=== PATIENT | female | born 1950 | race Hispanic/Latino ===

== ENCOUNTER 2018-07-13 09:03 | Inpatient (IN) | payer MEDICARE, BC ==
[~2018-07-13] VITALS: Ht 162.6 cm; Wt 94.4 kg
--- NOTE | 2018-07-13 09:09 | NUR ---
MD NOTIFIED OF PT ON ARRIVAL. STAT HEAD CT PER MD STROKE PROTOCOL.
--- NOTE | 2018-07-13 09:10 | NUR ---
DR. RODRIGUEZ AT BEDSIDE FOR PT EVAL.
--- OUTSIDE RECORDS SUMMARY | 2018-07-13 09:13 | XMS REPORT ---
Author Author [facility] Address Unknown Phone Unavailable Care Team Providers Care General Labor Name Role Phone Unavailable Unavailable Payers Payer Name Policy Type Policy Number Effective Date Expiration Date Problems This patient has no known problems. Allergies, Adverse Reactions, Alerts Allergy Name Allergy Type Status Severity Reaction(s) Onset Date Inactive Date Treating Clinician Comments tiara VALDEZ Active U 2013-09-12 00:00:00 Medications This patient has no known medications.
--- NOTE | 2018-07-13 09:35 | Diagnostic Imaging Report ---
Exam: Head CT without contrast History: Right-sided numbness Comparison studies: None Technique: Axial images were obtained from the skull base to the vertex. Coronal and sagittal images reconstructed from the axial data. Dose modulation, iterative reconstruction, and/or weight based adjustment of the mA/kV was utilized to reduce the radiation dose to as low as reasonably achievable. Radiation dose: Total DLP: 921 mGy*cm. Estimated effective dose: DLP x 0.015 Intravenous contrast: None Findings: Scalp: No abnormalities. Bones: No fractures, blastic or lytic lesions. Brain sulci: Appropriate for age. Ventricles: Normal in size and configuration. No hydrocephalus. Extra-axial spaces: No masses, no fluid collection. Parenchyma: No mass, acute hemorrhage or acute or chronic cortical insults. Subtle right anterior subinsular hypodensity adjacent to the anterior margin of the right lentiform nucleus may be a small chronic lacunar infarct. Sellar/suprasellar region: No abnormalities. Craniocervical junction: Patent foramen magnum. No Chiari one malformation. Incidental findings: Atherosclerotic calcifications in the carotid siphons. IMPRESSION: 1. No acute intracranial abnormalities. 2. Small right anterior subinsular lacunar infarct. Signed by: Dr. Cain Muñiz M.D. on 07/13/2018 9:32 AM
--- NOTE | 2018-07-13 09:35 | NUR ---
RADIOLOGY AT BEDSIDE FOR IMAGING AT THIS TIME.
[2018-07-13 10:17] LABS: BASOPHILS # (AUTO) 0.1 (0.0-0.1); BASOPHILS % 0.6 % (0.0-1.0); EOSINOPHILS # (AUTO) 0.4 (0.0-0.4); HEMATOCRIT 43.2 % (34.2-44.1); HEMOGLOBIN 13.1 g/dL (12.0-16.0); LYMPHOCYTES # (AUTO) 1.9 (1.0-3.2); LYMPHOCYTES % 19.4 % (18.0-39.1); MEAN CORPUSCULAR HEMOGLOBIN 23.9 pg (28-32); MEAN CORPUSCULAR HGB CONC 30.3 g/dL (31-35); MEAN CORPUSCULAR VOLUME 78.7 fL (81-99); MONOCYTES # (AUTO) 0.7 (0.2-0.8); MONOCYTES % 6.9 % (4.4-11.3); NEUTROPHILS # (AUTO) 6.8 (2.1-6.9); NEUTROPHILS % 68.4 % (38.7-80.0); PLATELET COUNT 322 x10e3/uL (140-360); RED BLOOD COUNT 5.49 x10e6/uL (3.6-5.1); RED CELL DISTRIBUTION WIDTH 18.3 % (11.7-14.4)
--- NOTE | 2018-07-13 10:18 | Diagnostic Imaging Report ---
EXAMINATION: CHEST SINGLE (PORTABLE) INDICATION: Right sided weakness, numbness. COMPARISON: None FINDINGS: TUBES and LINES: None. LUNGS: Lungs are well inflated. There is no evidence of pneumonia or pulmonary edema. PLEURA: No pleural effusion or pneumothorax. HEART AND MEDIASTINUM: The cardiomediastinal silhouette is unremarkable. BONES AND SOFT TISSUES: No acute osseous abnormality. Partially seen fixation hardware in the right proximal humerus. UPPER ABDOMEN: No free air under the diaphragm. IMPRESSION: No acute radiographic abnormality. Signed by: Dr. Sameer Abraham MD on 07/13/2018 10:15 AM
[2018-07-13 10:19] LABS: ALANINE AMINOTRANSFERASE 17 IU/L (0-55); ALBUMIN 3.3 g/dL (3.5-5.0); ALBUMIN/GLOBULIN RATIO 0.8 (0.8-2.0); ALKALINE PHOSPHATASE 96 IU/L (40-150); ANION GAP 14.8 mmol/L (8-16); BLOOD UREA NITROGEN 17 mg/dL (7-26); BUN/CREATININE RATIO 19 (6-25); CALCIUM 9.6 mg/dL (8.4-10.2); CARBON DIOXIDE 20 mmol/L (22-29); CHLORIDE 108 mmol/L (98-107); CREATINE KINASE 114 IU/L (29-168); CREATININE, SERUM 0.88 mg/dL (0.57-1.11); EST GLOMERULAR FILTRATION RATE > 60 ML/MIN (60-); GLUCOSE 131 mg/dL (74-118); MAGNESIUM 1.9 MG/DL (1.3-2.1); POTASSIUM 3.8 mmol/L (3.5-5.1); SODIUM 139 mmol/L (136-145)
[2018-07-13 10:22] LABS: INR 0.81; PROTHROMBIN TIME 11.7 seconds (11.9-14.5)
[2018-07-13 10:23] LABS: PARTIAL THROMBOPLASTIN TIME 27.5 seconds (23.8-35.5)
--- NOTE | 2018-07-13 10:27 | Diagnostic Imaging Report ---
Exam: Right wrist radiographs-3 views History: Status post fall with right wrist pain. Comparison: None. Findings: There is a mildly displaced and impacted, comminuted, intra-articular, distal radial fracture with dorsal angulation. There is borderline mild widening of the scapholunate distance, measuring 3.8 mm. Carpal alignment is otherwise unremarkable. The distal ulna is unremarkable in appearance. Impression: Mildly displaced, comminuted, intra-articular fracture of the distal radius with dorsal angulation. Scapholunate distance measures at the upper limit of normal on one of the views. Ligamentous injury is possible. Signed by: Dr. Sameer Abraham MD on 07/13/2018 10:24 AM
[2018-07-13 10:39] LABS: THYROID STIMULATING HORMONE 1.552 uIU/mL (0.350-4.940)
[2018-07-13 11:01] LABS: CLARITY,URINE CLEAR (CLEAR); COLOR,URINE YELLOW (YELLOW)
[2018-07-13 11:02] LABS: BILIRUBIN,URINE NEGATIVE (NEGATIVE); KETONES,URINE NEGATIVE (NEGATIVE); LEUKOCYTE ESTERASE ,URINE NEGATIVE (NEGATIVE); NITRITE,URINE NEGATIVE (NEGATIVE); PROTEIN,URINE DIPSTICK 1+ (NEGATIVE); URINE UROBILINOGEN 0.2 mg/dL (0.2 - 1)
[2018-07-13 11:03] LABS: BACTERIA,URINE FEW /HPF; EPITHELIAL CELLS,URINE MODERATE /LPF; RBC,URINE 0-5 /HPF (0-5); WBC,URINE (MAN) 0-5 /HPF (0-5)
[2018-07-13] MEDS ORDERED: ASPIRIN 81 MG CHEW TAB PO ONE (11:45)
[2018-07-13] MEDS ORDERED: ONDANSETRON HCL INJ 2MG/ML 2ML 2 MG/ML VIAL IV PRN (13:00)
[2018-07-13] MEDS ORDERED: ACETAMINOPHEN 325 MG TAB PO ONE (13:00)
[2018-07-13] MEDS ORDERED: ACETAMINOPHEN 325 MG TAB PO PRN (13:00)
[2018-07-13] MEDS ORDERED: DEXTROSE 50% SYRINGE 50 ML IV PRN (13:00)
--- NOTE | 2018-07-13 13:36 | NUR ---
Received patient via stretcher. Accompanied by daughter. AAOx4 to time, person,place, situation. Respirations even and unlabored. Tele #[id number] SR [id number]. Sling and splint to right arm. C/o pain to right wrist rates 4/10. Patient states "I don't need pain medication. Pain is tolerable." Oriented patient to room. Instructed to use call light for assistance. Voiced understanding.
[2018-07-13] MEDS ORDERED: BYSTOLIC10 MG PO (13:58)
[2018-07-13] MEDS ORDERED: LEVEMIR100 UNIT/1 SC (13:58)
[2018-07-13] MEDS ORDERED: JANUMET 50-1,01 EACH PO (13:58)
[2018-07-13] MEDS ORDERED: AMLODIPINE BESYL5 MG PO (13:58)
[2018-07-13] MEDS ORDERED: jardiance PEG (13:58)
[2018-07-13] MEDS ORDERED: RAMIPRIL5 MG PO (13:58)
[2018-07-13] MEDS ORDERED: PRAVASTATIN SOD20 MG PO (13:58)
[2018-07-13 14:00] VITALS: BP_SYST 183; BP_SYST 195; BP_DIAS 81; BP_DIAS 86
[2018-07-13 14:08] VITALS: BP 195/86
--- NOTE | 2018-07-13 14:15 | NUR ---
Notified of consult. Aware of of BP 195/86. No new orders
[2018-07-13] MEDS ORDERED: METFORMIN HCL 500 MG TAB PO SCH (17:00)
[2018-07-13] MEDS ORDERED: SITAGLIPTIN PHOS PO SCH (17:00)
[2018-07-13] MEDS ORDERED: METFORMIN HCL PO SCH (17:00)
[2018-07-13] MEDS ORDERED: [UNRECOGNIZED DRUG - OTHER] PO SCH (17:00)
[2018-07-13] MEDS ORDERED: SITAGLIPTIN 100 MG TAB PO SCH (17:00)
[2018-07-13] MEDS: ENOXAPARIN SOD INJ 40 MG/0.4 ML SYR SC SCH (17:31)
[2018-07-13] MEDS: METFORMIN HCL 500 MG TAB PO SCH (17:31)
[2018-07-13] MEDS: SITAGLIPTIN 100 MG TAB PO SCH (17:31)
[2018-07-13] MEDS: FAMOTIDINE 20 MG TAB PO SCH (17:31)
[2018-07-13] MEDS: INSULIN LISPRO 100 UNIT/1 ML 3ML VIAL SQ SCH ×3 (17:32→20:30)
--- NOTE | 2018-07-13 18:32 | Consultation ---
DATE OF CONSULTATION: 07/13/2018 Neurology Consult Note HISTORY OF PRESENT ILLNESS: Ms. Deleon is a 68-year-old right-hand dominant woman with multiple vascular risk factors admitted to [facility] on July 13, 2018, with a transient ischemic attack. On the morning of admission, the patient was pulling weeds in her garden when she experienced a sudden onset of tingling beginning in the right hand, then moving proximally to the right shoulder and right side of the face, then spreading over the right hemibody. Ms. Deleon endorses numbness and weakness in the same distribution. The patient does not report a visual field cut or other disturbance, dysarthria, dizziness, or confusion associated with above symptoms. Ms. Deleon reports possible expressive aphasia as well as gait impairment associated with the above symptoms. The symptoms described above persisted for approximately 5 to 10 minutes, then spontaneously resolved. While these symptoms were present, the patient's notified emergency medical services. Ms. Deleon was transported to the emergency center at [facility] via ambulance for further evaluation. Upon arrival in the emergency center, the patient was afebrile with a blood pressure of 138/108 mmHg and a pulse of 67 beats per minute. Her neurological examination was documented as being nonfocal. A CT of the brain without contrast was performed. This study did not reveal evidence of recent large territorial ischemia or hemorrhage. Ms. Deleon is admitted to [facility] as an inpatient for further evaluation and treatment of her symptoms. REVIEW OF SYSTEMS: Possible expressive aphasia, weakness of the right arm and leg, numbness and tingling of the right arm and leg, impairment of balance and gait. Otherwise, a 12-point review of systems is negative. PAST MEDICAL HISTORY: Hypertension, hyperlipidemia, diabetes mellitus type 2, and reported mild chronic kidney disease. PAST SURGICAL HISTORY: Total hysterectomy, cholecystectomy, appendectomy, repair of a right shoulder fracture. PAST HOSPITALIZATIONS: Surgeries/procedures as listed, childbirth x2. FAMILY MEDICAL HISTORY: The patient's paternal and maternal grandparents are . Their medical histories are unknown. The patient's father is from end- stage renal disease. He had liver cancer as well. The patient's mother is . Her medical history was significant for diabetes mellitus. Ms. Deleon has three siblings, two brothers and one sister, all of whom are living. One brother and the patient's sister have diabetes mellitus. The second brother is healthy. Ms. Deleon has two children, a son and a daughter, both of whom are alive and healthy. SOCIAL HISTORY: Ms. Deleon is . She is retired. The patient does not report current or prior tobacco or recreational drug use. The patient endorses rare alcohol consumption. HOME MEDICATIONS: Reviewed. Please see the list of home medications available in the electronic medical record. HOSPITAL MEDICATIONS: Reviewed. Please see the list of hospital medications available in the electronic medical record. ALLERGIES: NO KNOWN DRUG ALLERGIES. NO KNOWN FOOD ALLERGIES. NO KNOWN ALLERGIES TO LATEX. NO KNOWN ALLERGIES TO IODINE OR OTHER CONTRAST MATERIALS. PHYSICAL EXAMINATION: VITAL SIGNS: Height 64 inches, weight 210 pounds, BMI 36.0 kg/m2, blood pressure 142/63 mmHg, pulse 67 beats per minute, respiratory rate 17 breaths per minute, and oxygen saturation 95% on room air. GENERAL: The patient is awake and alert, does not appear distressed. Obese. HEENT: Normocephalic, atraumatic. Pupils are equal, round, and reactive to light. Moist mucous membranes. NECK: Supple. No appreciable thyromegaly. No appreciable carotid bruits. CARDIOVASCULAR: S1, S2, regular rate and rhythm. No murmurs, rubs, or gallops. RESPIRATORY: Clear to auscultation bilaterally. No wheezes, rhonchi, or rales. EXTREMITIES: The skin is warm and dry. No clubbing, cyanosis, or edema. The posterior tibial and dorsalis pedis pulses are 2+ and symmetric. The right arm is wrapped in a splint and sling. SKIN: No rashes or lesions. NEUROLOGIC: The right arm is immobilized in a splint and sling. This extremity is not examined during the neurological examination. MEMORY/ATTENTION: The patient is awake and alert, oriented to person, place, time, and situation. CRANIAL NERVES: Cranial nerve I-not tested. Cranial nerve II, III, IV, and - pupils are equal and round, react briskly to light (from 4 mm to 2 mm). Extraocular movements intact. No nystagmus. Cranial nerve V-sensation to light touch and pinprick is intact in the bilateral V1 through V3 distributions. Strength in the temporalis and masseter muscles within normal limits. Cranial nerve VII-the face is symmetric as are all facial movements. Strength is within normal limits. Cranial nerve VIII-hearing is intact to finger rub bilaterally. Cranial nerve IX, X-soft palate elevates equally and symmetrically. Cranial nerve XI-normal strength of the bilateral sternocleidomastoid and trapezius muscles. Cranial nerve XII-the tongue protrudes in midline and moves symmetrically from moby-[id number]-[id number]. STRENGTH: Bulk is normal. Strength is 5/5 in the bilateral deltoids, biceps, triceps, wrist flexors and extensors, finger flexors and extensors, intrinsic hand muscles, hip flexors, knee flexors and extensors, ankle dorsiflexion and plantar flexion, and intrinsic foot muscles excluding the right arm. Tone is normal. DTRs: Deep tendon reflexes are 2+ and symmetric at the triceps, biceps, brachioradialis, patellas, and Achilles, excluding the right arm. Plantar responses are flexor bilaterally. SENSATION: Sensation is intact to light touch and pinprick in both arms and both legs. CEREBELLAR: Lbqbtp-xvuf-lqnaoy and heel-arango movements are intact without dysmetria or other impairment excluding the right arm. GAIT: Deferred. SPEECH: Spontaneous speech is normal without appreciable dysarthria or aphasia. Repetition is intact. INVOLUNTARY MOVEMENTS: None. PRONATOR DRIFT: None excluding the right arm. LABORATORY DATA: A comprehensive metabolic panel is significant for chloride of 108, carbon dioxide of 20, glucose of 131, albumin of 3.3, and globulin of 3.9. B-natriuretic peptide is elevated at 121.7. CBC with differential and platelets reveals white blood cell count of 9.97 with a normal differential. Hemoglobin and hematocrit are 13.1 and 43.2, respectively. The platelet count is 322. PT 11.7, INR 0.81, PTT 27.5. Urinalysis is significant for 1+ protein, 3+ glucose, and 1+ blood. Urine culture has been collected and is pending. DIAGNOSTIC STUDIES: Electrocardiogram on 07/13/2018: Normal sinus rhythm at 60 beats per minute. Left axis deviation. Incomplete right bundle-branch block. Voltage criteria for left ventricular hypertrophy. Bilateral carotid artery ultrasound with Doppler on 07/13/2018: There is no atherosclerosis in either carotid artery system. Flow is antegrade in the bilateral vertebral arteries. CT of the brain without contrast on 07/13/2018: On my review, there is no evidence of recent or remote large territorial ischemia, hemorrhage, mass, or mass effect. Cerebral volumes are appropriate for age. There are findings compatible with mild chronic small vessel ischemic disease. Wrist x-ray on 07/13/2018: Mildly displaced comminuted intra-articular fracture of the distal radius with dorsal angulation. Scapholunate distance measures at the upper limit of normal on one of the views. Ligamentous injury is possible. Chest x-ray on 07/13/2018: No acute radiographic abnormality. Echocardiogram on 07/13/2018: Pending. ASSESSMENT AND PLAN: Ms. Deleon is a 68-year-old right-hand dominant woman with multiple vascular risk factors admitted to [facility] with a transient ischemic attack. At present, her neurological examination is nonfocal excluding the right arm. The patient's laboratory data and other diagnostic studies have been reviewed and are documented above. The patient will undergo a complete stroke evaluation as follows: 1. A lipid panel has been ordered and is pending. Hemoglobin A1c will be ordered. 2. An echocardiogram has been ordered and is pending. 3. MRI of the brain without contrast has been ordered and is pending. 4. The patient will be prescribed aspirin 325 mg by mouth daily for stroke prophylaxis. 5. Allow permissive hypertension for 24 to 48 hours following a transient ischemic attack or stroke. The patient's home antihypertensive medications will be held. Ms. Deleon will be treated with hydralazine 10 mg intravenously every 4 hours as needed for systolic blood pressure greater than 200 mmHg or diastolic blood pressure greater than 110 mmHg. 6. The patient's goal total cholesterol is less than 200 with LDL of less than 70. Follow up the results of the lipid panel. In the interim, treatment with the patient's home medication of pravastatin will be continued. 7. The patient's goal hemoglobin A1c is less than 7.0. Follow up the results of the hemoglobin A1c. In the interim, continue treatment with sliding scale insulin per protocol. Tight glycemic control is recommended while the patient is hospitalized. 8. Speech and Physical Therapy consultations will be deferred as the patient has no current deficits. 9. GI prophylaxis with Pepcid 20 mg by mouth with meals twice daily. DVT prophylaxis with Lovenox 40 mg injected subcutaneously daily. 10. Defer treatment of the remaining medical comorbidities to the primary and other services following the patient. Thank you for this consultation. I will continue to follow the patient while she remains in the hospital. TIME SPENT: 50 minutes. Fara Wang MD CP/MIRZA /[id number] MTDYony
--- NOTE | 2018-07-13 18:43 | Diagnostic Imaging Report ---
History: TIA Comparison studies: CT head 07/13/18 Technique: Sagittal T2; axial DWI, FLAIR, MPGR, T1, Coronal FLAIR. Intravenous contrast: None Findings: Scalp: Normal in signal . No masses . Bone marrow: Normal in signal intensity. Extra-axial: No masses, no fluid collections. Brain sulci: Appropriate for age. Ventricles: Normal in size . No hydrocephalus . Parenchyma: Again seen small chronic lacunar infarct at the right anterior subinsular region. No masses, hemorrhage, acute or chronic vascular insults. Suprasellar region: No abnormalities. Craniocervical junction: No abnormalities. Patent foramen magnum. No Chiari one malformation. Vessels: Normal flow-voids in the arteries and sinuses. IMPRESSION: 1. No acute abnormalities. 2. Small chronic lacunar infarct at the right anterior subinsular region Signed by: DR Ananth Oneill M.D. on 07/13/2018 6:39 PM
--- NOTE | 2018-07-13 19:10 | NUR ---
Report given to oncoming nurse of patient's status. No s/s of acute distress noted.
[2018-07-13 19:37] LABS: CREATINE KINASE MB 0.9 ng/mL (0-5.0)
[2018-07-13 20:06] VITALS: BP 216/94
[2018-07-13] MEDS: HYDRALAZINE HCL 20 MG/ML VIAL IV PRN (20:30)
[2018-07-13] MEDS: INSULIN GLARGINE 100 UNITS/ML VIAL SQ SCH (20:30)
[2018-07-13] MEDS: PRAVASTATIN 20 MG TAB PO SCH (20:35)
--- NOTE | 2018-07-13 20:35 | NUR ---
Paged Dr. Mccarty for orders.
[2018-07-13] MEDS ORDERED: MORPHINE SULFATE 2 MG/ML SYR 1ML IV PRN (20:45)
--- NOTE | 2018-07-13 20:45 | NUR ---
Spoke with Dr. Mccarty regarding pain. OK for morphine 2mg q4 prn for pain.
[2018-07-13] MEDS ORDERED: NON-FORMULARY MEDICATION (Insulin Detemir (Levemir) 60 UNITS) SC SCH (21:00)
[2018-07-13] MEDS: MORPHINE SULFATE INJ 4 MG/ML INJ 1ML IV PRN (21:41)
[2018-07-13 22:17] VITALS: BP 216/94
[2018-07-14] VITALS (9 sets, daily range): BP systolic 178–204; BP diastolic 79–89
--- NOTE | 2018-07-14 00:08 | History and Physical ---
CHIEF COMPLAINT: Ms. Deleon is a pleasant 68-year-old woman, diabetic, hypertensive, who presented to the emergency room on the morning of the 13 of July with a complaint of right-sided weakness, falling, and injury to the right wrist. 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 This resolved after about 10 minutes and she went on about her business. They recurred again today and she fell to the ground, injuring her right wrist. PAST MEDICAL HISTORY: Significant for longstanding diabetes and hypertension. PREVIOUS SURGICAL HISTORY: Includes a right shoulder surgery in February of 2018, which she feels she is still recovering from. She has had a remote hysterectomy, appendectomy, and cholecystectomy. HOME MEDICATIONS: Include Levemir 60 units at bedtime, pravastatin 20 mg daily, and Janumet two tablets daily, Jardiance 25 mg, amlodipine 5 mg daily, Bystolic 10 mg daily, and ramipril 5 mg daily. PERSONAL AND SOCIAL HISTORY: She does not smoke or drink. ALLERGIES: SHE IS ALLERGIC TO CODEINE. PHYSICAL EXAMINATION: GENERAL: At this time shows no obese woman, who is 5 feet 4 inches tall, weighing 210 pounds. VITAL SIGNS: Blood pressure earlier today 195/86. HEAD, EYES, EARS, NOSE, AND THROAT: Unremarkable. NECK: Thick. No jugular venous distention. No bruits. THORAX: Heart sounds S1 and S2 are equal. No murmurs. LUNGS: Clear. ABDOMEN: Protuberant. Normal bowel sounds. EXTREMITIES: No cyanosis, clubbing, or edema. The right arm is in a splint. LABORATORY DATA: Initial laboratory studies show glucose 131. White count 9.9. The x-ray of the right wrist shows fracture angulation. CAT scan of the head suggests small right subinsular lacunar infarct. ASSESSMENTS: 1. Transient ischemic attack, now seemingly improved. 2. History of hypertension. 3. History of type 2 adult onset diabetes. 4. Right wrist fracture. PLAN: The patient has been given aspirin and we will monitor carefully. She has already been seen by Dr. Wang and studies are in progress. We will ask for Orthopedic consultation as well. MD ALANA Jade/MIRZA /[id number] cc: oRme Wang MD
[2018-07-14] MEDS: MORPHINE SULFATE INJ 4 MG/ML INJ 1ML IV PRN ×4 (04:48→20:20)
[2018-07-14 05:53] LABS: BASOPHILS # (AUTO) 0.1 (0.0-0.1); BASOPHILS % 0.4 % (0.0-1.0); EOSINOPHILS # (AUTO) 0.1 (0.0-0.4); EOSINOPHILS % 1.2 % (0.0-6.0); HEMATOCRIT 40.5 % (34.2-44.1); HEMOGLOBIN 12.3 g/dL (12.0-16.0); LYMPHOCYTES # (AUTO) 2.2 (1.0-3.2); LYMPHOCYTES % 19.3 % (18.0-39.1); MEAN CORPUSCULAR HGB CONC 30.4 g/dL (31-35); MEAN CORPUSCULAR VOLUME 79.1 fL (81-99); MONOCYTES % 8.6 % (4.4-11.3); NEUTROPHILS # (AUTO) 7.9 (2.1-6.9); NEUTROPHILS % 69.9 % (38.7-80.0); PLATELET COUNT 349 x10e3/uL (140-360); RED BLOOD COUNT 5.12 x10e6/uL (3.6-5.1); RED CELL DISTRIBUTION WIDTH 18.4 % (11.7-14.4)
[2018-07-14 06:03] LABS: ALBUMIN/GLOBULIN RATIO 0.8 (0.8-2.0); CALCIUM 9.6 mg/dL (8.4-10.2); CHOL/HDL RATIO 4.1 (3.0-3.6); CREATININE, SERUM 0.96 mg/dL (0.57-1.11)
[2018-07-14 06:45] LABS: CREATINE KINASE MB 0.6 ng/mL (0-5.0)
[2018-07-14] MEDS: ASPIRIN 81 MG ENTERIC COATED PO SCH (08:40)
[2018-07-14] MEDS: FAMOTIDINE 20 MG TAB PO SCH ×2 (08:40→18:26)
[2018-07-14] MEDS: INSULIN LISPRO 100 UNIT/1 ML 3ML VIAL SQ SCH ×3 (08:40→18:28)
--- NOTE | 2018-07-14 14:14 | NUR ---
CASE MANAGEMENT ASSESSMENT Online Activist to bedside to discuss plan of care with patient/family. CM/SW role and care transitions discussed. Anticipated discharge plan discussed along with duration of care. CM/SW discussed patients right to make decisions in care. CM/SW work hours given. Patient lives: with her Ari Admit/Transfer: thru ED Hospital/ER visits since last admit: 0 POA/Emergency contact: Ari Deleon [phone] Current/Previous Home Health: none PCP/Follow-up Care: Pt will follow up with Dr. Cheng as soon as possible after she is discharges Current/Previous DME: none Medications (referring to index hospitalization or the first time you were in the hospital) a. Were changes made in your medications when you were in the hospital on [date of index hospitalization]? n/a b. Did you understand the changes? n/a c. Were you able to obtain your new medications right away? n/a d. Were you able to take your medications like the doctor wanted you to? n/a e. Did the hospital give you an accurate, easy to understand list of medications when you left? n/a Scale of 1-10 how comfortable does patient feel with disease management in outpatient settin Other Services: none Employment Status: retired Areas of Concerns: TIA Referral Needs: none Education Needs: TIA, safety precautions, medical management IMM/FRANZ given and signed (if applicable): IMM was given on admission Goal for discharge: home CM/SW left business card at the bedside with contact information. Name and number was also written on the patients whiteboard. Patient verbalized understanding of discussion. CM will follow-up with ongoing discharge and transition of care needs.
[2018-07-14] MEDS: METFORMIN HCL 500 MG TAB PO SCH (18:24)
[2018-07-14] MEDS: SITAGLIPTIN 100 MG TAB PO SCH (18:25)
[2018-07-14] MEDS: NEBIVOLOL 10 MG TAB PO SCH (18:25)
[2018-07-14] MEDS: RAMIPRIL 5 MG CAP PO SCH (18:25)
[2018-07-14] MEDS: ENOXAPARIN SOD INJ 40 MG/0.4 ML SYR SC SCH (18:25)
[2018-07-14] MEDS: AMLODIPINE BESYLATE 5 MG TAB PO SCH (18:26)
[2018-07-14] MEDS: PRAVASTATIN 20 MG TAB PO SCH (20:14)
[2018-07-14] MEDS: FENOFIBRATE 145 MG TAB PO SCH (20:14)
[2018-07-14] MEDS: INSULIN GLARGINE 100 UNITS/ML VIAL SQ SCH (20:15)
[2018-07-14] MEDS: HYDRALAZINE HCL 20 MG/ML VIAL IV PRN (20:20)
[2018-07-15] VITALS: BP 174/72
[2018-07-15 04:15] VITALS: BP 177/77
[2018-07-15] MEDS: INSULIN LISPRO 100 UNIT/1 ML 3ML VIAL SQ SCH ×4 (07:30→20:21)
--- NOTE | 2018-07-15 07:45 | NUR ---
The pt. was received on N P O status for stress test this morning. She was consented and placed in gown for the procedure. Morning med pass will be given upon return from procedure.
[2018-07-15 08:20] VITALS: BP 170/73
[2018-07-15 09:00] VITALS: BP 170/73
[2018-07-15] MEDS ORDERED: REGADENOSON 0.4 MG/5 ML SYR IV ONE (09:10)
--- NOTE | 2018-07-15 11:19 | NUR ---
IMM letter delivered and explained. Pt's signed letter. Signed copy placed in chart. Copy given to pt's .
[2018-07-15] MEDS: FAMOTIDINE 20 MG TAB PO SCH ×2 (11:57→17:25)
[2018-07-15] MEDS: RAMIPRIL 5 MG CAP PO SCH (11:58)
[2018-07-15] MEDS: ASPIRIN 81 MG ENTERIC COATED PO SCH (11:58)
[2018-07-15] MEDS: NEBIVOLOL 10 MG TAB PO SCH (11:59)
[2018-07-15] MEDS: AMLODIPINE BESYLATE 5 MG TAB PO SCH (11:59)
[2018-07-15 16:36] VITALS: BP 163/73
[2018-07-15] MEDS: SITAGLIPTIN 100 MG TAB PO SCH (17:26)
[2018-07-15] MEDS: ENOXAPARIN SOD INJ 40 MG/0.4 ML SYR SC SCH (17:26)
[2018-07-15] MEDS: METFORMIN HCL 500 MG TAB PO SCH (17:26)
--- NOTE | 2018-07-15 19:10 | NUR ---
Patient visited in room during nursing rounds. Patient alert and oriented x3. Right forearm covered with soft cast and kristen bandage dressing and wearing sling on right arm due to fracture on radial bone. Patient ambulatory prn. Family at bedside visiting. Call dodd within reach. Will monitor closely.
[2018-07-15 20:00] VITALS: BP 148/68
[2018-07-15] MEDS: FENOFIBRATE 145 MG TAB PO SCH (20:16)
[2018-07-15] MEDS: PRAVASTATIN 20 MG TAB PO SCH (20:16)
[2018-07-15] MEDS: INSULIN GLARGINE 100 UNITS/ML VIAL SQ SCH (20:21)
--- NOTE | 2018-07-15 20:31 | Myoview Stress Test ---
DATE OF STUDY: 07/15/2018 10:00:00 Stress Test - Treadmill ONLY The patient had resting perfusion images after injection of 11 mCi of technetium-99m Myoview. Later due to inability to exercise, the patient was given 0.4 mg of Lexiscan intravenously and shortly afterwards 33 mCi of technetium-99m Myoview. Perfusion images were taken by rotational tomography. Comparison of resting and Lexiscan stress images show no significant evidence of any perfusion defect. Additionally, gated wall motion images were obtained and calculated ejection fraction normal at 61% without regional wall motion abnormalities identified. FINAL IMPRESSIONS: 1. Normal Lexiscan Myoview for perfusion. 2. Normal left ventricular function with calculated ejection fraction of 61%. MD ALANA Jade/MODL /[id number] cc: Fara Wang MD
[2018-07-16] VITALS (7 sets, daily range): BP systolic 114–190; BP diastolic 58–77
[2018-07-16] MEDS: HYDRALAZINE HCL 20 MG/ML VIAL IV PRN (05:00)
--- NOTE | 2018-07-16 07:10 | NUR ---
pt awake sitting upright in bed resp even and unlabored at this time, pt able to make needs known, call light in reach.
[2018-07-16] MEDS ORDERED: AMLODIPINE BESYLATE 5 MG TAB PO SCH (09:00)
[2018-07-16] MEDS: FAMOTIDINE 20 MG TAB PO SCH (09:53)
[2018-07-16] MEDS: ASPIRIN 81 MG ENTERIC COATED PO SCH (09:53)
[2018-07-16] MEDS: NEBIVOLOL 10 MG TAB PO SCH (09:53)
[2018-07-16] MEDS: RAMIPRIL 5 MG CAP PO SCH (09:53)
[2018-07-16] MEDS: INSULIN LISPRO 100 UNIT/1 ML 3ML VIAL SQ SCH (09:55)
[2018-07-16] MEDS ORDERED: FENOFIBRATE145 MG PO (11:51)
[2018-07-16] MEDS ORDERED: METFORMIN HCL500 MG PO (11:51)
[2018-07-16] MEDS ORDERED: ASPIRIN EC81 MG PO (11:51)
[2018-07-16] MEDS ORDERED: NORVASC5 MG PO (11:51)
--- NOTE | 2018-07-16 13:10 | NUR ---
pt alert resp even and unlabored, pt has no c/o pain at this time, pt is discharged prescription given, iv site removed, no swelling no redness to site.
--- NOTE | 2018-07-17 06:28 | Discharge Summary ---
HISTORY: Ms. Deleon is pleasant 68-year-old diabetic hypertensive patient, who presented to the emergency room on the with a complaint of falling and fracturing her right wrist. HOSPITAL COURSE: The patient had neurologic deficit and right-sided weakness that had resolved by the time she presented to the emergency room. She was found to be hypertensive and diabetes inadequately controlled. Medications were adjusted. Noninvasive studies were checked including carotid Doppler scan, which showed no significant stenoses. Echocardiogram which showed mild left ventricular hypertrophy. Normal left ventricular function. No septal defects or valvular problems. She also had a Lexiscan Myoview performed, which showed normal perfusion and normal left ventricular function. Today, she has her right arm in a splint and will follow up with Dr. Cheng in the office for further management of her right wrist fracture. She will increase her amlodipine to 10 mg daily and enteric-coated aspirin 325 mg daily, fenofibrate 145 mg daily. She will continue previous medications of insulin, Jardiance, nebivolol 10 mg daily, pravastatin 20 mg daily, ramipril 20 mg daily and Janumet two tabs daily. DISCHARGE DIAGNOSES: 1. Transient ischemic attack/cerebrovascular accident. 2. Diabetes. 3. Hypertension. 4. Right wrist fracture. MD ALANA Jade/MIRZA /[id number] cc: MD Rome Roberto MD
== END 2018-07-16 13:15 | disposition home or self-care (01) | DRG 68 ==
LOC: ER 09:11 → ERHOLD 13:08 → MED/SURG2 13:58
PROVIDERS: ADMIT Internal Medicine Cardiovascular Disease; ATTEND Internal Medicine Cardiovascular Disease
DX: I66.09 Occlusion and stenosis of unspecified middle cerebral artery (principal); S52.571A Other intraarticular fracture of lower end of right radius, initial encounter for closed fracture; I69.351 Hemiplegia and hemiparesis following cerebral infarction affecting right dominant side; W01.0XXA Fall on same level from slipping, tripping and stumbling without subsequent striking against object, initial encounter; Y93.H2 Activity, gardening and landscaping; Y92.017 Garden or yard in single-family (private) house as the place of occurrence of the external cause; E66.9 Obesity, unspecified; Z68.35 Body mass index [BMI] 35.0-35.9, adult; D63.8 Anemia in other chronic diseases classified elsewhere; E11.65 Type 2 diabetes mellitus with hyperglycemia; I51.7 Cardiomegaly; I12.9 Hypertensive chronic kidney disease with stage 1 through stage 4 chronic kidney disease, or unspecified chronic kidney disease; N18.9 Chronic kidney disease, unspecified; E11.22 Type 2 diabetes mellitus with diabetic chronic kidney disease; Z82.49 Family history of ischemic heart disease and other diseases of the circulatory system; E78.5 Hyperlipidemia, unspecified; Z79.4 Long term (current) use of insulin
CPT/HCPCS: 36415; 70450; 70551; 71045; 78452; 80053; 80061; 81001; 82550; 82553; 82948; 83036; 83735; 83880; 84443; 84484; 85025; 85610; 85730; 87086; 93005; 93017; 93306; 93880; 99285; A9502; J0360; J1650; J1815; J2270